=== PATIENT | female | born 1945 | race Caucasian/White ===

== ENCOUNTER 2016-08-13 19:16 | Emergency (ER) | payer OTHER ==
[~2016-08-13] VITALS: Ht 157.5 cm; Wt 80.7 kg
--- NOTE | ~2016-08-13 | EKG ---
[facility] [employer] [place] [address] ELECTROCARDIOGRAM REPORT Name: JODY HOOPER Room #: DEP [facility]#: [id number] Admission: 08/13/16 Attend Phys: Discharge: 08/14/16 Date of : 43 Report #: [id number] THIS REPORT FOR: //name// [facility] ED Test Date: 2016-08-13 Test Time: 19:48:36 Pat Name: JODY HOOPER Department: Room: Gender: F Director Microbiology: CLARENCE : 1945 Requested By: Brayden Real Order Number: [id number] MD: Andrea Matos Measurements Intervals [place] Rate: 72 P: NV: QRS: 6 QRSD: 124 T: -11 QT: 409 QTc: 448 Interpretive Statements Afib/flut and V-paced complexes No further analysis attempted due to paced rhythm Compared to ECG 07/29/2010 19:50:34 Ventricular pacing is now present Electronically Signed On 08-14-2016 7:48:44 CDT by Andrea Matos [email or web address] <ELECTRONICALLY SIGNED> By: Andrea Matos MD, MERGED WITH [facility] 08/14/16 [id number] [id number] 47 Andrea Matos MD, MERGED WITH [facility] /EPI
[~2016-08-13 19:16] MED LIST: ADULT LOW DOSE81 MG PO; ADVAIR HFA115 MCG/21 INH; ALDACTONE25 MG PO; ASCRIPTIN 325325 MG PO; ATENOLOL PO; CARDIZEM CD180 MG PO; CENTRUM SILVER1 EAC4 PO; COUMADIN 4 MG TA4 M1 PO; CRESTOR10 MG PO; FISH OIL 1,001000 M2 PO; FOLIC ACID1 MG PO; FUROSEMIDE PO; HCTZ PO; HYDROCODONE-AP1 EAC6 PO; K-DUR 20 MEQ T20 MEQ PO; KLOR-CON 1010 MEQ PO; LASIX 40 MG TAB40 M2 PO; LEVAQUIN PO; LEXAPRO PO; LEXAPRO20 MG PO; LORTAB 5 MG/5001 TA1 PO; METHOTREXATE; METHOTREXATE 22.5 MG PO; METOCLOPRAMIDE; METOCLOPRAMIDE OR; METOCLOPRAMIDE PO; MOEXIPRIL HCL7.5 MG PO; POTASSIUM20 PO; PREDNISONE 10 M10 M1 PO; PREMARIN PO; PRILOSEC 20 MG20 MG PO; PRILOSEC2.5 MG PO; PROAIR HFA8.5 GM INH; PROBIOTIC1 EAC1 PO; REGLAN 10 MG TA10 MG PO; RELAFEN500 MG PO; SINEMET; SPIRIVA INH; TOPROL XL25 MG PO; UNIVASC7.5 MG PO; VITAMIN D1000 UNI1 PO; ZOCOR 10 MG TAB10 MG PO
[2016-08-13] MEDS ORDERED: LIPITOR20 MG PO (19:51)
[2016-08-13 20:19] LABS: HEMATOCRIT 40.1 % (37.0-47.0); HEMOGLOBIN 13.4 gm/dL (12.0-15.0); LYMPHOCYTES 16.3 % (24.0-44.0); MANUAL DIFF NO; MCH 32.6 pg (26.0-34.0); MCHC 33.6 g/dL (28.0-37.0); MCV 97.2 fL (80.0-100.0); MONOCYTES 8.7 % (1.0-8.0); PLATELET COUNT 387 thou/uL (150-400); RBC 4.13 mil/uL (4.20-5.00); RDW 14.7 % (10.5-14.5)
[2016-08-13 20:21] LABS: ANION GAP 10 mmol/L (7-16); BUN 26 mg/dL (7-18); CALCIUM 9.6 mg/dL (8.5-10.1); CHLORIDE 103 mmol/L (98-107); CO2 27 mmol/L (21-32); CREATININE 1.4 mg/dL (0.6-1.0); GLUCOSE 94 mg/dL (74-106); POTASSIUM 3.7 mmol/L (3.5-5.1); SODIUM 140 mmol/L (136-145)
[2016-08-13 20:28] LABS: ALBUMIN 3.7 g/dL (3.4-5.0); ALKALINE PHOSPHATASE 61 U/L (46-116); MAGNESIUM 2.1 mg/dL (1.8-2.4); SGOT 16 U/L (15-37); SGPT 29 U/L (30-65); TOTAL BILIRUBIN 0.4 mg/dL (<0.1-1.0); TOTAL PROTEIN 7.7 g/dL (6.4-8.2); TROPONIN-I < 0.04 ng/mL (<0.04-0.07)
[2016-08-13 22:52] LABS: INR 2.5; PROTIME 25.6 Seconds (9.3-11.4)
[2016-08-13] MEDS ORDERED: MUCINEX D ER 61 EACH PO (23:31)
[2016-08-13] MEDS ORDERED: PREDNISONE10 MG PO (23:31)
[2016-08-13] MEDS ORDERED: PROMETHAZINE-C120 ML PO (23:31)
[2016-08-13 23:34] VITALS: BP 135/75
== END 2016-08-14 00:02 | disposition home or self-care (01) ==
LOC: ER 19:16
PROVIDERS: Emergency Medicine
DX: J20.8 Acute bronchitis due to other specified organisms (principal)